=== PATIENT | female | born 1950 | race Hispanic/Latino ===

== ENCOUNTER 2017-03-09 15:31 | Outpatient (CLI) | payer MEDICARE ==
--- NOTE | 2017-03-12 08:36 | Magnetic Resonance Report ---
MR scan of the cranium was performed without contrast. Pulse sequences included: 1. T1 weighted sagittal and axial images without contrast 2. T2 weighted axial and coronal images 3. FLAIR axial images 4. Diffusion-weighted axial images 5. Apparent diffusion coefficient images Views of the posterior fossa showed a normal craniocervical junction. Cerebellar pontine angles were normal with normal seventh-eighth nerve complexes. Brainstem showed a right pontine lesion and a right inferior cerebellar peduncle lesion both in the white matter. The ventricular system showed a mildly larger left lateral ventricle than right lateral ventricle. Images of the hemispheres showed multiple areas of increased signal in the periventricular white matter with numerous Reilly's fingers. Occasional black holes were seen. Sinuses, flow voids in the [place] of [place], orbits, pituitary and basal ganglia were normal. Impression: Abnormal MR scan of the cranium without contrast. a. 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 ventricular asymmetry this scan was compared to the patient's previous scan of 12/03/2015 and shows no appreciable differences
== END 2017-03-09 15:32 | disposition home or self-care (01) ==
LOC: MRI 15:31
PROVIDERS: ATTEND Specialist
DX: G35 Multiple sclerosis (principal)
CPT/HCPCS: 70551